=== PATIENT | female | born 1990 | race Caucasian/White ===

== ENCOUNTER 2022-07-09 14:58 | Day surgery (SDC) | payer OTHER ==
[2022-07-09] MEDS ORDERED: LIDOCAINE HCL 1% 50 MG/5 ML VL PF IJ ONE (14:59)
[2022-07-09] MEDS ORDERED: Depo-Medrol 40 MG/ML IM ONE (14:59)
[2022-07-09] MEDS ORDERED: BUPIVACAINE 0.5% VIAL IJ ONE (14:59)
--- NOTE | 2022-07-09 18:46 | XRAY ---
Indication: Bilateral SI joint injection. Intraoperative fluoroscopy provided for 21 seconds. 4 digital spot image submitted for interpretation demonstrates posterior needle tip projecting over the left and right SI joint. Correlate with intraoperative findings/report.
--- NOTE | 2022-07-10 08:42 | XRAY ---
21 seconds of fluoroscopy was used in surgery for a bilateral sacroiliac joint injection.
== END 2022-07-09 18:24 | disposition home or self-care (01) ==
LOC: SDC-PAIN 14:58
PROVIDERS: ATTEND Psychiatry & Neurology Pain Medicine
DX: M46.1 Sacroiliitis, not elsewhere classified (principal); Z79.899 Other long term (current) drug therapy
CPT/HCPCS: 27096; 72202; 77002; 81025; J1030; J2001; G0260

== ENCOUNTER 2022-09-17 11:49 | Day surgery (SDC) | payer OTHER ==
[2022-09-17] MEDS ORDERED: LIDOCAINE HCL 1% 50 MG/5 ML VL PF IJ ONE (11:50)
[2022-09-17] MEDS ORDERED: Depo-Medrol 40 MG/ML IM ONE (11:50)
--- NOTE | 2022-09-17 14:45 | XRAY ---
Indication: Bilateral L4-S1 MBB. Intraoperative fluoroscopy provided for 16 seconds. Single digital spot image submitted for interpretation demonstrates posterior needle tips projecting over the expected left and right L4-S1 nerve roots. Correlate with intraoperative findings/report.
--- NOTE | 2022-09-17 14:49 | XRAY ---
16 seconds of fluoroscopy was used in surgery for a bilateral L4-S1 MBB.
[2022-09-17] MEDS ORDERED: Lactated Ringers 1,000 ML IV ONE (15:20)
== END 2022-09-17 13:35 | disposition home or self-care (01) ==
LOC: SDC-PAIN 11:49
PROVIDERS: ATTEND Psychiatry & Neurology Pain Medicine
DX: M47.816 Spondylosis without myelopathy or radiculopathy, lumbar region (principal); Z79.899 Other long term (current) drug therapy
CPT/HCPCS: 64493; 64494; 72020; 77002; 81025; J1030; J2001

== ENCOUNTER 2022-10-29 14:46 | Day surgery (SDC) | payer OTHER ==
[2022-10-29] MEDS ORDERED: BUPIVACAINE 0.5% VIAL IJ ONE (14:47)
[2022-10-29] MEDS ORDERED: Depo-Medrol 40 MG/ML IM ONE (14:47)
[2022-10-29] MEDS ORDERED: DIPRIVAN 200 MG/20 ML IV ONE ×2 (16:20→16:28)
--- NOTE | 2022-10-29 17:00 | XRAY ---
Indication: Bilateral L4-S1 MBB. Intraoperative fluoroscopy provided for 22 seconds. Single digital spot image submitted for interpretation demonstrates posterior needle tips projecting over the expected left and right L4-S1 nerve roots. Correlate with intraoperative findings/report.
[2022-10-29] MEDS ORDERED: Lactated Ringers 1,000 ML IV ONE (17:31)
--- NOTE | 2022-10-29 20:02 | XRAY ---
22 seconds of fluoroscopy was used in surgery for a bilateral L4-S1 MBB.
== END 2022-10-29 16:55 | disposition home or self-care (01) ==
LOC: SDC-PAIN 14:46
PROVIDERS: ATTEND Psychiatry & Neurology Pain Medicine
DX: M47.816 Spondylosis without myelopathy or radiculopathy, lumbar region (principal); Z79.899 Other long term (current) drug therapy
CPT/HCPCS: 64493; 64494; 72020; 77002; 81025; J1030; J2704

== ENCOUNTER 2022-11-26 11:41 | Day surgery (SDC) | payer OTHER ==
[2022-11-26] MEDS ORDERED: BUPIVACAINE 0.5% VIAL IJ ONE (11:42)
[2022-11-26] MEDS ORDERED: Depo-Medrol 40 MG/ML IM ONE (11:42)
[2022-11-26] MEDS ORDERED: LIDOCAINE HCL 1% 50 MG/5 ML VL PF IJ ONE (11:42)
[2022-11-26] MEDS ORDERED: DIPRIVAN 200 MG/20 ML IV ONE ×2 (13:59→14:09)
[2022-11-26] MEDS ORDERED: Zofran 4 MG/2 ML VIAL ONE (14:05)
[2022-11-26] MEDS ORDERED: Lactated Ringers 1,000 ML IV ONE (14:29)
--- NOTE | 2022-11-26 16:50 | XRAY ---
Indication: Right L4-S1 RFA. Intraoperative fluoroscopy provided for 50 seconds. 4 digital spot image submitted for interpretation demonstrates posterior needle tips projecting over the expected right L4-S1 nerve roots. Correlate with intraoperative findings/report.
--- NOTE | 2022-11-27 08:40 | XRAY ---
50 seconds of fluoroscopy was used in surgery for a right L4-S1 RFA.
== END 2022-11-26 14:45 | disposition home or self-care (01) ==
LOC: SDC-PAIN 11:41
PROVIDERS: ATTEND Psychiatry & Neurology Pain Medicine
DX: M47.816 Spondylosis without myelopathy or radiculopathy, lumbar region (principal); Z79.899 Other long term (current) drug therapy
CPT/HCPCS: 64635; 64636; 72100; 77002; 81025; J1030; J2001; J2405; J2704